=== PATIENT | male | born 1950 | race Asian ===

== ENCOUNTER 2021-02-03 08:49 | Outpatient (CLI) | payer BC | END 2021-02-03 08:50 | disposition home or self-care (01) | LOC: CSHCT 08:49 | PROVIDERS: ATTEND Radiology Radiation Oncology | DX: Z85.818 Personal history of malignant neoplasm of other sites of lip, oral cavity, and pharynx (principal); Z92.21 Personal history of antineoplastic chemotherapy | CPT/HCPCS: 70491; 82565 ==

== ENCOUNTER 2023-09-28 13:09 | Outpatient (CLI) | payer BC | END 2023-09-28 13:10 | disposition home or self-care (01) | LOC: CSHMRI 13:09 | PROVIDERS: ATTEND Family Medicine | DX: R26.81 Unsteadiness on feet (principal); H74.8X3 Other specified disorders of middle ear and mastoid, bilateral | CPT/HCPCS: 70553; 76377 ==

== ENCOUNTER 2023-10-19 08:19 | Outpatient (CLI) | payer BC | END 2023-10-19 08:20 | disposition home or self-care (01) | LOC: CSHMRI 08:19 | PROVIDERS: ATTEND Urology | DX: R97.20 Elevated prostate specific antigen [PSA] (principal) | CPT/HCPCS: 72197 ==